=== PATIENT | female | born 1990 | race Hispanic/Latino ===

== ENCOUNTER 2019-03-27 09:15 | Inpatient (IN) | payer OTHER ==
[~2019-03-27] VITALS: Ht 154.9 cm; Wt 87.8 kg
[2019-03-27] MEDS ORDERED: ONDANSETRON HCL 4 MG/2 ML VIAL ONE (10:05)
[2019-03-27] MEDS ORDERED: KETOROLAC TROMETHAMINE 30MG/ML ONE (10:05)
[2019-03-27 10:13] LABS: BASOPHILS % (AUTO) 0.4 % (0.0-5.0); EOSINOPHILS % (AUTO) 1.2 % (0.0-8.0); LYMPHOCYTES % (AUTO) 15.5 % (21.0-51.0); MEAN CORPUSCULAR HEMOGLOBIN 24.8 pg (27.0-33.0); MEAN CORPUSCULAR HGB CONC 32.9 g/dL (32.0-36.0); MEAN CORPUSCULAR VOLUME 75.3 fL (79-99); MONOCYTES % (AUTO) 7.1 % (3.0-13.0); NEUTROPHILS % (AUTO) 75.8 % (40.0-77.0); NUCLEATED RED BLOOD CELLS 0.1 % (0.0-0.19); PLATELET COUNT (AUTO) 229 K/uL (130-400); RED BLOOD CELL COUNT(AUTO) 5.71 MIL/uL (4.00-5.50); RED CELL DISTRIBUTION WIDTH 14.6 % (11.0-15.5); WHITE BLOOD COUNT (AUTO) 13.3 K/uL (4.8-10.8)
[2019-03-27 10:23] LABS: POTASSIUM 3.3 mmol/L (3.5-5.1)
[2019-03-27 10:29] LABS: ALBUMIN 4.2 g/dL (3.5-5.0); BILIRUBIN,TOTAL 0.9 mg/dL (0.2-1.0)
[2019-03-27] MEDS: SODIUM CHLORIDE 0.9% 1000ML 1,000 ML IV SCH ×2 (15:09→22:13)
[2019-03-27] MEDS ORDERED: ONDANSETRON HCL 4 MG/2 ML VIAL IV PRN (15:15)
[2019-03-27] MEDS ORDERED: ACETAMINOPHEN 325 MG TAB PO PRN ×2 (15:15)
[2019-03-27] MEDS ORDERED: HYDRALAZINE HCL 20 MG/ML VIAL IV PRN (15:15)
[2019-03-27] MEDS ORDERED: ZOSYN 3.375GM+NS 50ML 50 ML IV ONE (15:40)
[2019-03-27 16:30] VITALS: BP 126/64
[2019-03-27 19:15] VITALS: BP 120/64
[2019-03-27] MEDS ORDERED: PROMETHAZINE HCL 25 MG/ML 1ML AMPULE IM PRN (19:45)
[2019-03-27] MEDS ORDERED: MORPHINE SULFATE 4 MG/1ML SYG IV PRN (19:45)
[2019-03-27] MEDS ORDERED: MORPHINE SULFATE 2 MG/ML 1ML SYG ONE (19:55)
[2019-03-27] MEDS: FAMOTIDINE/PF 20 MG/2 ML VIAL IV SCH (20:06)
[2019-03-27] MEDS: MORPHINE SULFATE 2 MG/ML 1ML SYG IVP PRN (20:07)
[2019-03-27] MEDS: POTASSIUM CHLORIDE 20MEQ/100ML 100 ML IV PRN (20:13)
[2019-03-27] MEDS: LIDOCAINE HCL-MPF 1% 2ML VIAL IVP PRN (20:13)
[2019-03-27] MEDS: ZOSYN 3.375GM+NS 50ML 50 ML IV SCH (22:14)
--- NOTE | 2019-03-27 23:20 | NUR ---
MD MAX Tovar made rounds and saw patient. Patient resting in bed with spouse at bedside. No shortness of breath or distress. Patient states no pain at this time. Assessed patient and informed patient results of MRCP. Explained and informed patient of diagnose and the plan for consult of GI and surgeon doctor in am. Consults for GI is MD Dennis, and surgeon is MD Koo. MD allowed patient to ask questions. Patient states none at this time. Will follow orders and continue to monitor patient.
[2019-03-28] VITALS (7 sets, daily range): BP systolic 120–146; BP diastolic 59–78
[2019-03-28 04:18] LABS: HEMATOCRIT 36.7 % (36-48); MEAN CORPUSCULAR HEMOGLOBIN 25.6 pg (27.0-33.0); MEAN CORPUSCULAR HGB CONC 33.2 g/dL (32.0-36.0); MEAN CORPUSCULAR VOLUME 77.2 fL (79-99); PLATELET COUNT (AUTO) 173 K/uL (130-400); RED BLOOD CELL COUNT(AUTO) 4.75 MIL/uL (4.00-5.50); RED CELL DISTRIBUTION WIDTH 14.9 % (11.0-15.5); WHITE BLOOD COUNT (AUTO) 7.4 K/uL (4.8-10.8)
[2019-03-28 04:40] LABS: ALBUMIN 3.1 g/dL (3.5-5.0); BILIRUBIN,TOTAL 0.8 mg/dL (0.2-1.0); CREATININE 1.1 mg/dL (0.5-1.5); TOTAL PROTEIN, SERUM 6.3 g/dL (6.0-8.3)
[2019-03-28] MEDS: ZOSYN 3.375GM+NS 50ML 50 ML IV SCH ×3 (05:02→19:59)
[2019-03-28] MEDS: SODIUM CHLORIDE 0.9% 1000ML 1,000 ML IV SCH (05:02)
[2019-03-28] MEDS: ENOXAPARIN SODIUM 40 MG/0.4 ML SYRINGE SQ SCH (09:00)
[2019-03-28] MEDS: FAMOTIDINE/PF 20 MG/2 ML VIAL IV SCH ×2 (09:26→19:59)
[2019-03-28] MEDS: LACTATED RINGERS 1000ML 1,000 ML IV SCH ×3 (10:45→19:51)
--- NOTE | 2019-03-28 14:43 | NUR ---
DCP CM met with pt discussed dc plans. Pt is independent prior to admission, lives at home with boyfriend. Denies any equipments/services. Pt feels safe to go back home. Still works and drives, boyfriend able to assist with transportation and needs. DC plan to home once stable. CM to cont to follow up. Addendum: 03/28/19 at 1444 by RYAN SPENCER LVN CM Amended: Links added.
[2019-03-29] MEDS: LACTATED RINGERS 1000ML 1,000 ML IV SCH ×5 (01:50→19:54)
[2019-03-29 03:10] VITALS: BP 122/67
[2019-03-29] MEDS: ZOSYN 3.375GM+NS 50ML 50 ML IV SCH ×3 (04:45→19:54)
[2019-03-29 04:54] LABS: BASOPHILS % (AUTO) 0.3 % (0.0-5.0); EOSINOPHILS % (AUTO) 2.2 % (0.0-8.0); HEMATOCRIT 35.2 % (36-48); MEAN CORPUSCULAR HEMOGLOBIN 25.4 pg (27.0-33.0); MEAN CORPUSCULAR HGB CONC 33.5 g/dL (32.0-36.0); MEAN CORPUSCULAR VOLUME 75.9 fL (79-99); MONOCYTES % (AUTO) 9.1 % (3.0-13.0); NEUTROPHILS % (AUTO) 64.4 % (40.0-77.0); PLATELET COUNT (AUTO) 205 K/uL (130-400); RED BLOOD CELL COUNT(AUTO) 4.64 MIL/uL (4.00-5.50); RED CELL DISTRIBUTION WIDTH 14.6 % (11.0-15.5); WHITE BLOOD COUNT (AUTO) 8.9 K/uL (4.8-10.8)
[2019-03-29 05:25] LABS: ALBUMIN 3.2 g/dL (3.5-5.0); BILIRUBIN,DIRECT 0.2 mg/dL (0.0-0.3); BILIRUBIN,TOTAL 1.3 mg/dL (0.2-1.0); CREATININE 1.1 mg/dL (0.5-1.5); POTASSIUM 3.4 mmol/L (3.5-5.1); TOTAL PROTEIN, SERUM 6.9 g/dL (6.0-8.3)
[2019-03-29] MEDS: LIDOCAINE HCL-MPF 1% 2ML VIAL IVP PRN (05:35)
[2019-03-29] MEDS: POTASSIUM CHLORIDE 20MEQ/100ML 100 ML IV PRN (05:35)
[2019-03-29 08:00] VITALS: BP 144/69
--- NOTE | 2019-03-29 08:45 | NUR ---
PAGED DR. ROMERO. WAITING FOR CALL BACK.
[2019-03-29] MEDS: ENOXAPARIN SODIUM 40 MG/0.4 ML SYRINGE SQ SCH (09:00)
[2019-03-29] MEDS: FAMOTIDINE/PF 20 MG/2 ML VIAL IV SCH ×2 (09:03→19:54)
--- NOTE | 2019-03-29 09:30 | NUR ---
DR. ROMERO AWARE OF CONSULT. STATED SHE WAS COMING BACK TO SEE THE PATIENT LATER TODAY.
[2019-03-29 12:00] VITALS: BP 131/69
[2019-03-29 16:00] VITALS: BP 140/75
[2019-03-29 19:46] VITALS: BP 134/70
[2019-03-30] VITALS (7 sets, daily range): BP systolic 116–133; BP diastolic 57–69
[2019-03-30] MEDS: LACTATED RINGERS 1000ML 1,000 ML IV SCH ×5 (02:45→22:31)
[2019-03-30] MEDS: ZOSYN 3.375GM+NS 50ML 50 ML IV SCH ×3 (04:28→22:23)
[2019-03-30 05:33] LABS: BASOPHILS % (AUTO) 0.4 % (0.0-5.0); EOSINOPHILS % (AUTO) 1.5 % (0.0-8.0); HEMATOCRIT 34.1 % (36-48); LYMPHOCYTES % (AUTO) 22.2 % (21.0-51.0); MEAN CORPUSCULAR HEMOGLOBIN 26.1 pg (27.0-33.0); MEAN CORPUSCULAR HGB CONC 34.5 g/dL (32.0-36.0); MEAN CORPUSCULAR VOLUME 75.7 fL (79-99); MONOCYTES % (AUTO) 9.5 % (3.0-13.0); NEUTROPHILS % (AUTO) 66.4 % (40.0-77.0); PLATELET COUNT (AUTO) 183 K/uL (130-400); RED CELL DISTRIBUTION WIDTH 14.4 % (11.0-15.5)
[2019-03-30 05:50] LABS: CREATININE 0.9 mg/dL (0.5-1.5); MAGNESIUM 1.7 mg/dL (1.80-2.40); POTASSIUM 3.9 mmol/L (3.5-5.1)
[2019-03-30] MEDS: FAMOTIDINE/PF 20 MG/2 ML VIAL IV SCH ×2 (08:57→22:23)
[2019-03-30] MEDS: ENOXAPARIN SODIUM 40 MG/0.4 ML SYRINGE SQ SCH (09:00)
--- NOTE | 2019-03-30 09:30 | NUR ---
DR. CAVAZOS VISITED WITH PATIENT. POC DISCUSSED. ACCORDING TO DR. CAVAZOS, PATIENT NEEDS TO HAVE AN ERCP DONE FIRST BEFORE SURGERY. I CALLED DR. OHARA TO CONFIRM THIS WITH HIM AND PASSED THE PHONE TO DR. CAVAZOS. AFTER SPEAKING TO DR. OHARA, DR CAVAZOS GAVE NEW ORDERS. ANITHA RODGERS SCHEDULED FOR TOMORROW WITH [facility]. PATIENT AWARE. FAXED ORDER TO [facility]. CALLED HOUSE TO CONFIRM.
[2019-03-30] MEDS: MORPHINE SULFATE 2 MG/ML 1ML SYG IVP PRN (14:25)
[2019-03-31] VITALS (25 sets, daily range): BP systolic 100–123; BP diastolic 53–75
[2019-03-31] MEDS: LACTATED RINGERS 1000ML 1,000 ML IV SCH ×4 (03:01→22:29)
[2019-03-31] MEDS: ZOSYN 3.375GM+NS 50ML 50 ML IV SCH ×3 (04:38→22:02)
[2019-03-31 05:35] LABS: BASOPHILS % (AUTO) 3.1 % (0.0-5.0); EOSINOPHILS % (AUTO) 4.9 % (0.0-8.0); HEMATOCRIT 35.5 % (36-48); LYMPHOCYTES % (AUTO) 10.8 % (21.0-51.0); MEAN CORPUSCULAR HEMOGLOBIN 25.7 pg (27.0-33.0); MEAN CORPUSCULAR HGB CONC 33.4 g/dL (32.0-36.0); MEAN CORPUSCULAR VOLUME 76.9 fL (79-99); MONOCYTES % (AUTO) 8.9 % (3.0-13.0); NEUTROPHILS % (AUTO) 72.3 % (40.0-77.0); PLATELET COUNT (AUTO) 183 K/uL (130-400); RED BLOOD CELL COUNT(AUTO) 4.62 MIL/uL (4.00-5.50); RED CELL DISTRIBUTION WIDTH 14.3 % (11.0-15.5); WHITE BLOOD COUNT (AUTO) 7.7 K/uL (4.8-10.8)
[2019-03-31 05:40] LABS: POTASSIUM 3.7 mmol/L (3.5-5.1)
[2019-03-31] MEDS ORDERED: MIDAZOLAM HCL 1 MG/ML 2ML VIAL ONE ×2 (07:42→08:07)
[2019-03-31] MEDS ORDERED: LIDOCAINE PF 2% 5ML ABBOJECT ONE (08:07)
[2019-03-31] MEDS ORDERED: DEXAMETHASONE SOD PHOSPHATE 10MG/ML 1ML VIAL ONE (08:07)
[2019-03-31] MEDS ORDERED: ROCURONIUM 10MG/1ML SYR 10 MG/ML ML ONE (08:07)
[2019-03-31] MEDS ORDERED: ONDANSETRON HCL 4 MG/2 ML VIAL ONE (08:07)
[2019-03-31] MEDS ORDERED: GLYCOPYRROLATE 1 MG/5 ML SYRINGE ONE (08:07)
[2019-03-31] MEDS ORDERED: PROPOFOL 10 MG/ML 20ML VIAL IV ONE (08:07)
[2019-03-31] MEDS ORDERED: NEOSTIGMINE 5MG/5ML SYR IV ONE (08:07)
[2019-03-31] MEDS ORDERED: SUCCINYLCHOLINE 200MG/10ML SYR ONE (08:07)
[2019-03-31] MEDS ORDERED: FENTANYL CITRATE PF 50 MCG/1 ML 2ML VIAL ONE ×2 (08:08→08:40)
[2019-03-31] MEDS ORDERED: IOHEXOL-350 50ML VIAL IV ONE (08:25)
[2019-03-31] MEDS: ENOXAPARIN SODIUM 40 MG/0.4 ML SYRINGE SQ SCH (09:00)
[2019-03-31] MEDS: FAMOTIDINE/PF 20 MG/2 ML VIAL IV SCH ×2 (09:00→22:02)
[2019-03-31] MEDS ORDERED: ONDANSETRON HCL 4 MG/2 ML VIAL IVP PRN (09:15)
[2019-03-31] MEDS ORDERED: MORPHINE SULFATE 4 MG/1ML SYG IV PRN (09:15)
[2019-03-31] MEDS ORDERED: MEPERIDINE-PF 25 MG/ML SYG ONE ×2 (09:33→09:44)
[2019-04-01] VITALS (25 sets, daily range): BP systolic 102–129; BP diastolic 52–89
[2019-04-01] MEDS: ZOSYN 3.375GM+NS 50ML 50 ML IV SCH ×3 (05:08→21:26)
[2019-04-01 05:44] LABS: BASOPHILS % (AUTO) 0.5 % (0.0-5.0); HEMATOCRIT 36.3 % (36-48); LYMPHOCYTES % (AUTO) 35.1 % (21.0-51.0); MEAN CORPUSCULAR HEMOGLOBIN 25.9 pg (27.0-33.0); MEAN CORPUSCULAR HGB CONC 33.6 g/dL (32.0-36.0); MONOCYTES % (AUTO) 7.1 % (3.0-13.0); NEUTROPHILS % (AUTO) 52.3 % (40.0-77.0); NUCLEATED RED BLOOD CELLS 0.1 % (0.0-0.19); PLATELET COUNT (AUTO) 239 K/uL (130-400); RED BLOOD CELL COUNT(AUTO) 4.71 MIL/uL (4.00-5.50); RED CELL DISTRIBUTION WIDTH 14.5 % (11.0-15.5); WHITE BLOOD COUNT (AUTO) 7.1 K/uL (4.8-10.8)
[2019-04-01 05:58] LABS: ALBUMIN 3.3 g/dL (3.5-5.0); BILIRUBIN,TOTAL 0.9 mg/dL (0.2-1.0); CREATININE 1.1 mg/dL (0.5-1.5); POTASSIUM 3.6 mmol/L (3.5-5.1); TOTAL PROTEIN, SERUM 7.7 g/dL (6.0-8.3)
[2019-04-01] MEDS: FAMOTIDINE/PF 20 MG/2 ML VIAL IV SCH ×2 (08:54→21:27)
[2019-04-01] MEDS: ENOXAPARIN SODIUM 40 MG/0.4 ML SYRINGE SQ SCH (09:00)
[2019-04-01] MEDS: LACTATED RINGERS 1000ML 1,000 ML IV SCH (11:49)
[2019-04-01] MEDS ORDERED: INDOMETHACIN 50 MG SUPP.RECT RC SCH (12:30)
[2019-04-01] MEDS ORDERED: IOHEXOL-350 50ML VIAL IV ONE (13:12)
[2019-04-01] MEDS ORDERED: SUCCINYLCHOLINE CHLORIDE 20 MG/ML 10 ML VIAL ONE (14:18)
[2019-04-01] MEDS ORDERED: PROPOFOL 10 MG/ML 20ML VIAL IV ONE ×2 (14:18)
[2019-04-01] MEDS ORDERED: MEPERIDINE-PF 25 MG/ML SYG ONE (15:14)
[2019-04-02] MEDS: LACTATED RINGERS 1000ML 1,000 ML IV SCH (01:18)
[2019-04-02 04:01] VITALS: BP 88/55
[2019-04-02] MEDS: ZOSYN 3.375GM+NS 50ML 50 ML IV SCH ×3 (04:37→20:38)
[2019-04-02] MEDS: MORPHINE SULFATE 2 MG/ML 1ML SYG IVP PRN (04:46)
[2019-04-02 06:16] LABS: BILIRUBIN,TOTAL 1.8 mg/dL (0.2-1.0); CREATININE 0.9 mg/dL (0.5-1.5); POTASSIUM 3.9 mmol/L (3.5-5.1); TOTAL PROTEIN, SERUM 6.8 g/dL (6.0-8.3)
[2019-04-02 07:10] LABS: HEMATOCRIT 34.7 % (36-48); MEAN CORPUSCULAR HEMOGLOBIN 25.2 pg (27.0-33.0); MEAN CORPUSCULAR HGB CONC 32.8 g/dL (32.0-36.0); MEAN CORPUSCULAR VOLUME 76.7 fL (79-99); PLATELET COUNT (AUTO) 204 K/uL (130-400); RED BLOOD CELL COUNT(AUTO) 4.53 MIL/uL (4.00-5.50); RED CELL DISTRIBUTION WIDTH 14.2 % (11.0-15.5); WHITE BLOOD COUNT (AUTO) 4.3 K/uL (4.8-10.8)
[2019-04-02 07:12] LABS: NUCLEATED RED BLOOD CELLS 0.4 % (0.0-0.19)
[2019-04-02 08:00] VITALS: BP 120/77
[2019-04-02 08:13] LABS: BAND NEUTROPHILS % (MANUAL) 1 % (0-2); EOSINOPHILS % (MANUAL) 9 % (1-6); LYMPHOCYTES % (MANUAL) 46 % (22-44); MAN.DIFF COMMENT-IMPRESSION MANUAL DIFFERENTIAL; MONOCYTES % (MANUAL) 9 % (2-9); PLATELET MORPHOLOGY COMMENT ADEQUATE; REACTIVE LYMPHOCYTES 2 % (0-0); SEGMENTED NEUTROPHILS % 33 % (40-70)
[2019-04-02] MEDS: ENOXAPARIN SODIUM 40 MG/0.4 ML SYRINGE SQ SCH ×2 (09:00→11:03)
[2019-04-02] MEDS: FAMOTIDINE/PF 20 MG/2 ML VIAL IV SCH ×2 (11:02→20:38)
[2019-04-02 11:49] VITALS: BP 109/59
[2019-04-02 15:43] LABS: ALBUMIN 3.5 g/dL (3.5-5.0); BILIRUBIN,TOTAL 1.7 mg/dL (0.2-1.0); POTASSIUM 3.6 mmol/L (3.5-5.1); TOTAL PROTEIN, SERUM 7.8 g/dL (6.0-8.3)
[2019-04-02 16:00] VITALS: BP 114/67
--- NOTE | 2019-04-02 18:41 | NUR ---
NURSING NOTE Repeated CMP as ordered by Dr. Koo. Bilirubin at 1.7 and ALT at 631. Dr. Koo made aware. Stated patient will stay overnight. And to notify Dr. Mccracken. Dr. Mccracken was notified; stated she will see patient tomorrow and to have a CMP ready. Marley was notified as well that no discharge today due to lab results. No other orders received.
[2019-04-02 19:08] VITALS: BP 140/92
[2019-04-02 23:20] VITALS: BP 109/60
[2019-04-03 03:50] VITALS: BP 117/75
[2019-04-03] MEDS: ZOSYN 3.375GM+NS 50ML 50 ML IV SCH (04:17)
[2019-04-03 06:01] LABS: BASOPHILS % (AUTO) 0.6 % (0.0-5.0); EOSINOPHILS % (AUTO) 7.6 % (0.0-8.0); HEMATOCRIT 36.6 % (36-48); LYMPHOCYTES % (AUTO) 28.8 % (21.0-51.0); MEAN CORPUSCULAR HGB CONC 33.8 g/dL (32.0-36.0); MEAN CORPUSCULAR VOLUME 76.9 fL (79-99); MONOCYTES % (AUTO) 9.2 % (3.0-13.0); NEUTROPHILS % (AUTO) 53.8 % (40.0-77.0); PLATELET COUNT (AUTO) 231 K/uL (130-400); RED BLOOD CELL COUNT(AUTO) 4.76 MIL/uL (4.00-5.50); RED CELL DISTRIBUTION WIDTH 14.1 % (11.0-15.5); WHITE BLOOD COUNT (AUTO) 5.3 K/uL (4.8-10.8)
[2019-04-03 06:21] LABS: ALBUMIN 3.2 g/dL (3.5-5.0); BILIRUBIN,TOTAL 0.9 mg/dL (0.2-1.0); CREATININE 1.1 mg/dL (0.5-1.5); TOTAL PROTEIN, SERUM 7.5 g/dL (6.0-8.3)
[2019-04-03 06:34] VITALS: BP 113/68
--- NOTE | 2019-04-03 08:03 | NUR ---
ANEUDY AMADO MD TO REPORT TODAY'S ALT RESULTS. AWAITING CALLBACK.
--- NOTE | 2019-04-03 08:20 | NUR ---
DR. VÁZQUEZ SPOKE TO DR. VÁZQUEZ VIA TELEPHONE REGARDING 04/03/19 TOTAL BILIRUBIN, AST, ALT RESULTS. STATES THAT IT IS PROBABLY DUE TO SWELLING, BUT WILL REVIEW LAB STUDIES AND IMAGING STUDIES DONE AND WILL CALL ME BACK LATER. STATES IF ANY PROCEDURES PLANNED, IT WILL MOSTLY LIKELY BE TOMORROW. AND STATES OKAY TO FEED PATIENT.
[2019-04-03] MEDS: FAMOTIDINE/PF 20 MG/2 ML VIAL IV SCH (09:00)
[2019-04-03] MEDS: ENOXAPARIN SODIUM 40 MG/0.4 ML SYRINGE SQ SCH (09:00)
--- NOTE | 2019-04-03 11:40 | NUR ---
CONTINUATION FO CARE Received report from nurse Jacquelyn. Patietn stable. Denies any needs. Stated she is tolerating PO intake well with no issues, no nausea or emesis. Passing flatus and had a bowel movement, normal, already. IV site to left hand # 22g healthy-looking; not tender.
[2019-04-03 11:52] VITALS: BP 112/75
--- NOTE | 2019-04-03 16:49 | NUR ---
DISCHARGE Both Drs. Koo and Nawaf discharged patient. Dr. Mccracken asked to inform patient not to skip follow up appointment because a blood draw will be done in her office for testing. Patient verbalized and demonstrated understanding and stated she will be compliant and will go to her follow up appointment with Dr. Mccracken. When I attempted to draw hep lock patient stated she had already D/C her hep lock. She did not have a hep lock inher right hand. When asked how she stated "I did it like you guys do it". She added "I took a kleenex and put on top and removed the needed". She was informed of signs and symptoms of infection and was told to notify doctor if she notes redness, pink, warm, tenderness at insertion or surgical sites. Verbalized and demonstrated understanding.
== END 2019-04-03 17:00 | disposition home or self-care (01) | DRG 417 ==
LOC: EDH 09:15 → EDHIP 09:16 → 3DH 16:30
PROVIDERS: ADMIT Internal Medicine; ATTEND Internal Medicine
PROC: BF141ZZ Fluoroscopy of Gallbladder, Bile Ducts and Pancreatic Ducts using Low Osmolar Contrast (ICD-10-PCS; 2019-03-31)
PROC: 0FT44ZZ Resection of Gallbladder, Percutaneous Endoscopic Approach (ICD-10-PCS; principal; 2019-03-31 08:20)
PROC: BF141ZZ Fluoroscopy of Gallbladder, Bile Ducts and Pancreatic Ducts using Low Osmolar Contrast (ICD-10-PCS; 2019-04-01)
PROC: 0FC98ZZ Extirpation of Matter from Common Bile Duct, Via Natural or Artificial Opening Endoscopic (ICD-10-PCS; 2019-04-01)
DX: K80.70 Calculus of gallbladder and bile duct without cholecystitis without obstruction (principal); K85.10 Biliary acute pancreatitis without necrosis or infection; K65.9 Peritonitis, unspecified; E86.1 Hypovolemia; E87.6 Hypokalemia; K29.70 Gastritis, unspecified, without bleeding; E66.9 Obesity, unspecified; J45.909 Unspecified asthma, uncomplicated; K66.8 Other specified disorders of peritoneum; Z82.5 Family history of asthma and other chronic lower respiratory diseases; Z90.722 Acquired absence of ovaries, bilateral; Z68.36 Body mass index [BMI] 36.0-36.9, adult
CPT/HCPCS: 36415; 43262; 43264; 74181; 74300; 74330; 76705; 80048; 80053; 80061; 80076; 83690; 83735; 85025; 85027; C1758; C1769; C1773; G0378; J0330; J1100; J1650; J1885; J2001; J2175; J2250; J2270; J2405; J2543; J2704; J2710; J3010; J3480; J3490; J7030; J7120; Q9967